=== PATIENT | female | born 1970 | race African-American/Black ===

== ENCOUNTER 2020-05-04 11:53 | Emergency (ER) | payer OTHER ==
[~2020-05-04] VITALS: Ht 167.6 cm; Wt 59.0 kg
[~2020-05-04 11:53] MED LIST: BACTRIM DS TAB1 EACH PO; NAPROSYN500 MG PO; NOHOMEMEDICATIONS; NORCO 5-325 TA1 EACH PO; TRIAMCINOLONE A80 G2 TOP; ZYRTEC10 M2 PO
[2020-05-04 14:27] VITALS: BP 113/63
== END 2020-05-04 14:42 | disposition home or self-care (01) ==
LOC: ER 11:53
DX: S06.0X0A Concussion without loss of consciousness, initial encounter (principal); M54.2 Cervicalgia; Z79.899 Other long term (current) drug therapy; W18.09XA Striking against other object with subsequent fall, initial encounter; Y93.01 Activity, walking, marching and hiking; Y92.481 Parking lot as the place of occurrence of the external cause; Y99.0 Civilian activity done for income or pay